=== PATIENT | male | born 1960 | race Caucasian/White ===

== ENCOUNTER 2016-08-09 13:30 | Inpatient (IN) | payer MEDICAID | END 2016-09-06 20:50 | disposition home or self-care (01) | DRG 895 | DX: F10.24 Alcohol dependence with alcohol-induced mood disorder (principal); K70.10 Alcoholic hepatitis without ascites; I10 Essential (primary) hypertension; F17.210 Nicotine dependence, cigarettes, uncomplicated; M47.817 Spondylosis without myelopathy or radiculopathy, lumbosacral region; M54.5 Low back pain; G89.29 Other chronic pain; D75.89 Other specified diseases of blood and blood-forming organs; E66.9 Obesity, unspecified; J44.9 Chronic obstructive pulmonary disease, unspecified; N20.0 Calculus of kidney; F43.9 Reaction to severe stress, unspecified; F41.9 Anxiety disorder, unspecified; K21.9 Gastro-esophageal reflux disease without esophagitis; Z81.1 Family history of alcohol abuse and dependence ==